=== PATIENT | female | born 1980 ===

== ENCOUNTER 2019-09-27 10:26 | Emergency (ER) | payer OTHER ==
[~2019-09-27] VITALS: Ht 162.6 cm; Wt 70.8 kg
[~2019-09-27 10:26] MED LIST: IBUPROFEN800 MG PO; NORFLEX100MG PO; ORTHO TRI-CYCL1 EACH
== END 2019-09-27 11:03 | disposition home or self-care (01) ==
LOC: ER 10:26
DX: S30.0XXA Contusion of lower back and pelvis, initial encounter (principal); S40.022A Contusion of left upper arm, initial encounter; M79.18 Myalgia, other site; W22.8XXA Striking against or struck by other objects, initial encounter; Y93.A9 Activity, other involving cardiorespiratory exercise; Y92.018 Other place in single-family (private) house as the place of occurrence of the external cause; Y99.8 Other external cause status

== ENCOUNTER → 2020-09-26 | Emergency (ER) | payer OTHER ==
[~2020-09-26] VITALS: Ht 162.6 cm; Wt 68.0 kg
[~2020-09-26] MED LIST changes: +ACETAMINOPHEN650 M2; +CARAFATE1 GM PO; +PEPCID AC20 MG PO; +PROTONIX20 MG PO
== END | disposition home or self-care (01) ==
LOC: ER 14:37
DX: K29.70 Gastritis, unspecified, without bleeding (principal)